=== PATIENT | male | born 1970 | race African-American/Black ===

== ENCOUNTER 2018-10-18 20:49 | Emergency (ER) | payer SELFPAY ==
[~2018-10-18] VITALS: Ht 185.4 cm; Wt 85.0 kg
[2018-10-18 20:56] VITALS: BP 153/96
== END 2018-10-18 22:22 | disposition left against medical advice (07) ==
LOC: ER 20:49
DX: Z53.21 Procedure and treatment not carried out due to patient leaving prior to being seen by health care provider (principal)